=== PATIENT | male | born 1955 | race Hispanic/Latino ===

== ENCOUNTER 2017-04-19 05:33 | Observation (INO) | payer BC ==
[2017-04-19 05:45] VITALS: BMI 29.3
--- NOTE | 2017-04-19 05:53 | ED PDOC ---
HPI: Abdomen Time Seen by Provider: 04/19/17 05:39 Chief Complaint (Nursing): Abdominal Pain Chief Complaint (Provider): abdominal pain History Per: Patient History/Exam Limitations: no limitations Onset/Duration Of Symptoms: Days (2) Outside of [place] travel?: No Current Symptoms Are (Timing): Still Present Location Of Pain/Discomfort: Diffuse Quality Of Discomfort: "Pain" Associated Symptoms: denies: Fever, Chills, Nausea, Vomiting, Diarrhea Additional History Per: Patient Additional Complaint(s): The patient is a 61yo male, past medical history of HIV, not on HAART, CD4 count 900 and viral load 200, presents to the ED for evaluation of right sided abdominal pain since 8pm last night. Patient also reports he has not had a normal bowel movement since 2 days ago; he denies any associated fever, chills, nausea, vomiting and offer no additional medical complaints. Past Medical History Reviewed: Historical Data, Nursing Documentation, Vital Signs Vital Signs: Last Vital Signs Temp 98.1 F 04/19/17 17:29 Pulse 70 04/19/17 17:47 Resp 17 04/19/17 17:47 BP 148/93 H 04/19/17 17:29 Pulse Ox 98 04/19/17 17:29 - Medical History PMH: HIV - Surgical History Surgical History: No Surg Hx - Family History Family History: States: Unknown Family Hx - Home Medications Home Medications: Ambulatory Orders Medication Instructions Recorded Biotin [Obi Biotin] 1 cap PO DAILY 04/19/17 Cholecalciferol (Vitamin D3) 5,000 unit PO DAILY 04/19/17 [Vitamin D3] Docusate Sodium [Dulcolax Stool 100 mg PO DAILY #12 capsule 04/19/17 Softener] Levothyroxine [Synthroid] 25 mcg PO DAILY 04/19/17 [place] Carbonate [Lithobid] 300 mg PO DAILY 04/19/17 Naproxen Sodium [Aleve] 220 mg PO BID PRN 04/19/17 Testosterone Cypionate 2.5 ml IM TH 04/19/17 [Depo-Testosterone Inj] buPROPion XL [Wellbutrin XL] 150 mg PO DAILY 04/19/17 buPROPion XL [Wellbutrin XL] 300 mg PO DAILY 04/19/17 - Allergies Allergies/Adverse Reactions: Allergies Allergy/AdvReac Type Severity Reaction Status Date / Time No Known Allergies Allergy Verified 04/19/17 05:48 Review of Systems ROS Statement: Except As Marked, All Systems Reviewed And Found Negative Constitutional: Negative for: Fever, Chills Gastrointestinal: Positive for: Abdominal Pain. Negative for: Nausea, Vomiting Physical Exam - Reviewed Nursing Documentation Reviewed: Yes Vital Signs Reviewed: Yes - Physical Exam Appears: Positive for: Well, Non-toxic, No Acute Distress Head Exam: Positive for: ATRAUMATIC, NORMAL INSPECTION, NORMOCEPHALIC Skin: Positive for: Normal Color, Warm, DRY Eye Exam: Positive for: Normal appearance Neck: Positive for: Normal, Supple Cardiovascular/Chest: Positive for: Regular Rate, Rhythm Respiratory: Positive for: Normal Breath Sounds. Negative for: Respiratory Distress Gastrointestinal/Abdominal: Positive for: Soft, Tenderness (mild right sided abdominal tenderness). Negative for: Other (McBurney's point tenderness, Roy 's sign) Rectal: Negative for: Other (fecal impaction) Extremity: Positive for: Normal ROM. Negative for: Deformity Neurologic/Psych: Positive for: Alert, Oriented. Negative for: Motor/Sensory Deficits - Laboratory Results Result Diagrams: 04/19/17 06:06 04/19/17 06:06 - ECG O2 Sat by Pulse Oximetry: 100 (RA) Pulse Ox Interpretation: Normal Medical Decision Making Medical Decision Making: Time: 544 Impression: Constipation Plan: -- BMP -- LFT -- CBC -- XR Obstructive Series -- Toradol 15 mg IV Reassess Time: 06 Patient reports symptoms are still present. He has not tried the fleet enema yet. Told patient to try enema and if no relief, will need CT A/P to r/o other causes of abd pain. Time: 07 Patient to be signed out to Dr. Haro pending re-evaluation after enema and final disposition. Scribe Attestation: Documented by Denise Rojo acting as a scribe for Jeison Molina MD. Provider Attestation: All medical record entries made by the Scribe were at my direction and personally dictated by me. I have reviewed the chart and agree that the record accurately reflects my personal performance of the history, physical exam, medical decision making, and the department course for this patient. I have also personally directed, reviewed, and agree with the discharge instructions and disposition. Disposition - Clinical Impression Clinical Impression: Partial small bowel obstruction - Disposition Disposition: Transfer of Care Disposition Time: 07:00 Condition: FAIR Patient Signed Over To: Filiberto Haro Handoff Comments: pending reassessment
[2017-04-19 06:10] LABS: BASO # 0.1 K/uL (0.0-0.2); BASO % 0.7 % (0.0-2.0); EOS # 0.2 K/uL (0.0-0.7); EOS % 1.2 % (0.0-4.0); HEMATOCRIT 54.1 % (35.0-51.0); LYMPH % 14.2 % (20.0-40.0); MEAN CELL VOLUME 87.8 fl (80.0-94.0); MEAN CORPUSCULAR HEMOGLOBIN 28.7 pg (27.0-31.0); MEAN CORPUSCULAR HGB CONC 32.7 g/dL (33.0-37.0); MEAN PLATELET VOLUME 8.7 fl (7.2-11.7); MONO # 1.3 K/uL (0.0-0.8); MONO % 9.1 % (0.0-10.0); NEUT # 10.3 K/uL (1.8-7.0); NEUT % 74.8 % (50.0-75.0); NRBC % 0.2 % (0.0-0.0); RED CELL DISTRIBUTION WIDTH 13.2 % (11.5-14.5); WHITE BLOOD COUNT 13.8 K/uL (4.8-10.8)
[2017-04-19 06:19] LABS: ALB/GLOB RATIO 1.8 (1.0-2.1); ALKALINE PHOSPHATASE 66 U/L (38-126); ALT/SGPT 42 U/L (21-72); AST/SGOT 28 U/L (17-59); BILIRUBIN,TOTAL 1.1 mg/dl (0.2-1.3); BLOOD UREA NITROGEN 21 mg/dl (9-20); CALCIUM 11.3 mg/dL (8.4-10.2); CARBON DIOXIDE 32 mmol/L (22-30); CHLORIDE 96 mmol/L (98-107); GFR AFRICAN-AMERICAN > 60; GLUCOSE,RANDOM 120 mg/dL (75-110); SODIUM 140 mmol/l (132-148); TOTAL PROTEIN 7.9 G/DL (6.3-8.2)
[2017-04-19 06:32] LABS: POTASSIUM 5.2 MMOL/L (3.6-5.0)
--- NOTE | 2017-04-19 07:17 | ED PDOC ---
- Laboratory Results Result Diagrams: 04/19/17 06:06 04/19/17 06:06 - ECG O2 Sat by Pulse Oximetry: 100 (RA) Pulse Ox Interpretation: Normal - Progress ED Course And Treament: 1323: Partial small bowel obstruction. Surgery resident saw pt. and put in NG. They will contact Dr. Marshall for further discussion and treatment plan. Will need admit to service for further eval. 1338: Spoke with Dr. Fraga. Will admit and give further orders when pt. reaches floor. Medical Decision Making Medical Decision Making: Time: 07:00 --Patient endorsed from Dr. Molina to me. --Here for constipation and abdominal pain since last night. --Pending reevaluation for relief after medication given for bowel movement. Time: 07:40 --Patient complaining of some pain after medication given. --Admit to hospital routine: on ED Obs for continuation of abdominal pain. --Abd Pelvis PO & IV Contrast CT ordered for further evaluation. --Iohexol 50 mL PO --Morphine 2 mg IV --Sodium Chloride 500 mls/hr IV Any further documentation will be included within ED Obs section of chart. Scribe Attestation: Documented by Tess Bautista, acting as a scribe for Filiberto Haro MD. Provider Scribe Attestation: All medical record entries made by the Scribe were at my direction and personally dictated by me. I have reviewed the chart and agree that the record accurately reflects my personal performance of the history, physical exam, medical decision making, and the department course for this patient. I have also personally directed, reviewed, and agree with the discharge instructions and disposition. Disposition Counseled Patient/Family Regarding: Studies Performed, Diagnosis - Clinical Impression Clinical Impression: Partial small bowel obstruction - POA Present On Arrival: None - Disposition Disposition: Admitted as In-Patient Disposition Time: 13:29 Condition: FAIR ED OBSERVATION Discharge: Yes Date of observation admission: 04/19/17 Time of observation admission: 07:38 - Observation admission statement Patient is being placed in observation because:: abdominal pain - Goals of Observation Goals of observation are:: PO & IV contrast intake, abdomen CT completion, and resolution of symptoms. - Progress Note Progress Note: 04/19/17 08:06 --Morphine 2 mg IV 04/19/17 08:41 --Abdomen Obstructive Series X-ray FINDINGS: CHEST: Lungs: Clear. Cardiovascular: Normal size heart. No pulmonary vascular congestion. Pleura: No pleural fluid. No pneumothorax. Other findings: None. ABDOMEN AND PELVIS: Bowel: . Moderate stool is in the rectosigmoid colon and hepatic flexure. Mid and mid to distal small bowel loops mild-moderately distended with either fecalization in the more proximal small bowel loops or stool in a redundant rectosigmoid colon are suggested. Free air: None. Bones: Scoliosis left sacroiliac sclerotic arthrosis L4-5 and L5-S1 facet arthrosis Other findings: None. IMPRESSION: Mid to mid-distal small bowel obstruction - at this time incomplete yet likely high-grade partial suggested. No free air. Moderate colonic stool retention. No pulmonary infiltrate 04/19/17 09:10 --Patient resting comfortably, ingesting PO & IV Contrast, and pending CT Completion. 04/19/17 10:40 --Patient resting comfortably, ingesting PO & IV Contrast, and pending CT Completion. 04/19/17 11:46 --Dilaudid 1 mg IVP 04/19/17 12:10 --Pending official reading of abd & pelvis CT
[2017-04-19] MEDS ORDERED: Iohexol 240 (50 ml) PO ONE (07:37)
[2017-04-19] MEDS ORDERED: Sodium Chloride 0.9% 500 ML IV STA (07:37)
[2017-04-19] MEDS ORDERED: Iohexol 240 (50 ml) ONE (07:40)
--- NOTE | 2017-04-19 08:43 | RAD ---
PROCEDURE: Radiographs of the chest and abdomen (obstructive series) HISTORY: no BM in 2 days COMPARISON: No prior. TECHNIQUE: AP radiograph of the chest, with upright and supine radiographs of the abdomen. FINDINGS: CHEST: Lungs: Clear. Cardiovascular: Normal size heart. No pulmonary vascular congestion. Pleura: No pleural fluid. No pneumothorax. Other findings: None. ABDOMEN AND PELVIS: Bowel: . Moderate stool is in the rectosigmoid colon and hepatic flexure. Mid and mid to distal small bowel loops mild-moderately distended with either fecalization in the more proximal small bowel loops or stool in a redundant rectosigmoid colon are suggested. Free air: None. Bones: Scoliosis left sacroiliac sclerotic arthrosis L4-5 and L5-S1 facet arthrosis Other findings: None. IMPRESSION: Mid to mid-distal small bowel obstruction - at this time incomplete yet likely high-grade partial suggested. No free air. Moderate colonic stool retention. No pulmonary infiltrate
[2017-04-19] MEDS ORDERED: Iodixanol 320 MG/ML 100 ML BOTTLE IV ONE (10:56)
[2017-04-19] MEDS ORDERED: Sodium Chloride 0.9% 50 ML IV ONE (10:56)
[2017-04-19] MEDS ORDERED: HYDROmorphone 0.5 mg/0.5 ml ISec IVP STA (11:46)
[2017-04-19] MEDS ORDERED: HYDROmorphone 0.5 mg/0.5 ml ISec ONE (11:49)
--- NOTE | 2017-04-19 13:11 | CT ---
PROCEDURE: CT Abdomen and Pelvis with contrast HISTORY: abd pain COMPARISON: None. TECHNIQUE: Contrast dose: 95 cc of Visipaque administered Radiation dose: Total exam DLP = 992 mGy-cm. This CT exam was performed using one or more of the following dose reduction techniques: Automated exposure control, adjustment of the mA and/or kV according to patient size, and/or use of iterative reconstruction technique. FINDINGS: LOWER THORAX: Unremarkable. LIVER: Mild hepatic diffuse steatosis suggested No gross lesion or ductal dilatation. GALLBLADDER AND BILE DUCTS: Unremarkable. PANCREAS: Unremarkable. No gross lesion or ductal dilatation. SPLEEN: Unremarkable. ADRENALS: Unremarkable. No mass. KIDNEYS AND URETERS: Unremarkable. No hydronephrosis. No solid mass. Symmetrical renal function. VASCULATURE: Unremarkable. No aortic aneurysm. BOWEL: The stomach is distended with trace oral contrast within it.There are multiple proximal mid and some distal small bowel dilated loops present. A discrete transitional point is not identified. Some small bowel fecalization is suggested distally. Along the right lower dilated small bowel loops there is contiguous ascites. No significant appearing mesenteric edema is noted. No discrete obstructing mass is identified. Moderate stool in the colon is present. The right colon is not collapsed. . Large bowel is not distended either. APPENDIX: Normal appendix. PERITONEUM: There is some free fluid along the anterior distal dilated small bowel loops in the right lower quadrant. No free air. LYMPH NODES: Unremarkable. No enlarged lymph nodes. BLADDER: Unremarkable. REPRODUCTIVE: Unremarkable. BONES: No acute fracture. OTHER FINDINGS: None. IMPRESSION: High-grade partial distal small bowel obstruction suggested. Anterior free fluid borders the right lower quadrant dilated distal small bowel loops. No free air seen. No obstructing mass seen. A discrete transitional point is not identified.
--- NOTE | 2017-04-19 13:45 | CP.PCM.CON ---
History of Present Illness - History of Present Illness History of Present Illness: Surgery: Dr. Marshall CC: Abd pain HPI: 61M w. pmh of HIV, not on HAART, depression, and hypothyroid presents w. acute onset abd pain. Pain began last night around 8PM. Pain is constant, sharp , and waxes and wanes in severity. Pain is in R mid abd. Pt has never had this pain before. Pt denies N/V. Last flatus was at 2 AM. Pt did have BM this morning following enema, but prior to this, last BM was on Monday. Pt states this is not typical of him. He denies F/C, no CROWDER/blurred vision, no CP/ palpitations, no SOB/cough, no hematuria/dysuria. CT done in ED consistent w. high grade SBO. PMH: See above PSH: Jaw surgery Meds: MAR reviewed NKDA Social: No ETOH/tobacco/drugs Fhx: non-contributory Review of Systems - Review of Systems All systems: reviewed and no additional remarkable complaints except (HPI) Past Patient History - Past Social History Smoking Status: Never Smoked - HEMATOLOGICAL/ONCOLOGICAL Hx Human Immunodeficiency Virus (HIV): Yes - PSYCHIATRIC Hx Substance Use: No - SURGICAL HISTORY Hx Surgeries: No - ANESTHESIA Hx Anesthesia: No Meds Home Medications: Home Medication List Medication Instructions Recorded Confirmed Type Docusate Sodium [Dulcolax Stool 100 mg PO DAILY #12 capsule 04/19/17 Rx Softener] Allergies/Adverse Reactions: Allergies Allergy/AdvReac Type Severity Reaction Status Date / Time No Known Allergies Allergy Verified 04/19/17 05:48 Physical Exam - Constitutional Appears: Non-toxic, No Acute Distress - Head Exam Head Exam: ATRAUMATIC, NORMOCEPHALIC - Eye Exam Eye Exam: EOMI. absent: Scleral icterus Pupil Exam: PERRL - ENT Exam ENT Exam: Mucous Membranes Moist, Normal External Ear Exam - Neck Exam Neck exam: Positive for: Full Rom - Respiratory Exam Respiratory Exam: NORMAL BREATHING PATTERN. absent: Accessory Muscle Use, Respiratory Distress - GI/Abdominal Exam GI & Abdominal Exam: Distended (mild), Soft, Tenderness (diffuse, more prominent R mid abd). absent: Firm, Guarding, Rebound, Rigid - Extremities Exam Extremities exam: Negative for: calf tenderness, pedal edema - Neurological Exam Neurological exam: Alert, Oriented x3 - Psychiatric Exam Psychiatric exam: Normal Affect, Normal Mood - Skin Skin Exam: Dry, Normal Color, Warm Results - Vital Signs Recent Vital Signs: Last Vital Signs Temp 99.1 F 04/19/17 05:41 Pulse 65 04/19/17 07:37 Resp 18 04/19/17 05:41 BP 124/85 04/19/17 07:37 Pulse Ox 100 04/19/17 13:29 - Labs Result Diagrams: 04/19/17 06:06 04/19/17 06:06 - Imaging and Cardiology CT scan - abdomen Status: Image reviewed by me, Report reviewed by me Assessment & Plan - Assessment and Plan (Free Text) Assessment: 61M w. SBO -NPO -NGT to continuous suction -IVF -dilaudid -zofran -serial abd exams -will d/w attending Fahad PGY3
[2017-04-19] MEDS ORDERED: Sodium Chloride 0.9% 1,000 ML IV SCH (14:00)
[2017-04-19] MEDS: Sodium Chloride 0.9% 1,000 ML IV SCH ×2 (16:35→22:45)
--- NOTE | 2017-04-19 17:14 | RAD ---
HISTORY: NGT placement. COMPARISON: Comparison made with prior CT scan abdomen pelvis 04/19/2017 at 1059 hours FINDINGS: In situ NGT the tip of which lies just at or above the level of the EG junction and should be advanced. BOWEL: Stomach appears to be distended with air and contrast. Oral contrast material also appears to opacify the distended loops of small bowel seen to much better advantage on prior CT scan BONES: Mild multilevel degenerative spondylosis of the lower thoracic and lumbar spine. OTHER FINDINGS: Excreted contrast material seen within in incompletely distended urinary bladder. IMPRESSION: NGT tip lies at or just lr above the EG junction and must be advanced. . . Findings discussed with [facility] Nurse Jimenez at approximately 5:10 p.m with written down and read back verification.
--- NOTE | 2017-04-19 19:48 | CP.PCM.HP ---
Past Patient History - Past Social History Smoking Status: Never Smoked - CARDIAC Hx Cardiac Disorders: No - PULMONARY Hx Respiratory Disorders: No - NEUROLOGICAL Hx Neurological Disorder: No - HEENT Hx HEENT Problems: No - RENAL Hx Chronic Kidney Disease: No - ENDOCRINE/METABOLIC Hx Endocrine Disorders: No - HEMATOLOGICAL/ONCOLOGICAL Hx Blood Disorders: Yes Hx Human Immunodeficiency Virus (HIV): Yes - INTEGUMENTARY Hx Dermatological Problems: No - MUSCULOSKELETAL/RHEUMATOLOGICAL Hx Musculoskeletal Disorders: No Hx Falls: No - GENITOURINARY/GYNECOLOGICAL Hx Genitourinary Disorders: No - PSYCHIATRIC Hx Psychophysiologic Disorder: Yes Hx Depression: Yes - SURGICAL HISTORY Hx Surgeries: No - ANESTHESIA Hx Anesthesia: No Meds Home Medications: Home Medication List Medication Instructions Recorded Confirmed Type Docusate Sodium [Dulcolax Stool 100 mg PO DAILY #12 capsule 04/19/17 Rx Softener] Allergies/Adverse Reactions: Allergies Allergy/AdvReac Type Severity Reaction Status Date / Time No Known Allergies Allergy Verified 04/19/17 05:48 Results - Vital Signs Recent Vital Signs: Last Vital Signs Temp 98.1 F 04/19/17 17:29 Pulse 70 04/19/17 17:47 Resp 17 04/19/17 17:47 BP 148/93 H 04/19/17 17:29 Pulse Ox 98 04/19/17 17:29 - Labs Result Diagrams: 04/19/17 06:06 04/19/17 06:06
[2017-04-20] MEDS: Sodium Chloride 0.9% 1,000 ML IV SCH ×3 (02:40→11:40)
[2017-04-20] MEDS ORDERED: Chlorhexidine Gluconate 1 APPL/PKT TP ONE (06:01)
[2017-04-20 07:49] LABS: BASO % 0.5 % (0.0-2.0); EOS # 0.1 K/uL (0.0-0.7); EOS % 1.4 % (0.0-4.0); HEMATOCRIT 44.7 % (35.0-51.0); LYMPH # 1.9 K/uL (1.0-4.3); LYMPH % 18.4 % (20.0-40.0); MEAN CELL VOLUME 87.8 fl (80.0-94.0); MEAN CORPUSCULAR HEMOGLOBIN 28.8 pg (27.0-31.0); MEAN CORPUSCULAR HGB CONC 32.8 g/dL (33.0-37.0); MEAN PLATELET VOLUME 8.8 fl (7.2-11.7); MONO % 10.2 % (0.0-10.0); NEUT # 7.2 K/uL (1.8-7.0); NEUT % 69.5 % (50.0-75.0); NRBC % 0.1 % (0.0-0.0); RED CELL DISTRIBUTION WIDTH 12.8 % (11.5-14.5); WHITE BLOOD COUNT 10.3 K/uL (4.8-10.8)
[2017-04-20 07:58] LABS: ALB/GLOB RATIO 1.7 (1.0-2.1); ALKALINE PHOSPHATASE 52 U/L (38-126); ALT/SGPT 36 U/L (21-72); AST/SGOT 19 U/L (17-59); BILIRUBIN,TOTAL 1.5 mg/dl (0.2-1.3); BLOOD UREA NITROGEN 14 mg/dl (9-20); CALCIUM 8.6 mg/dL (8.4-10.2); CARBON DIOXIDE 25 mmol/L (22-30); CHLORIDE 106 mmol/L (98-107); GFR AFRICAN-AMERICAN > 60; GLUCOSE,RANDOM 97 mg/dL (75-110); POTASSIUM 3.8 MMOL/L (3.6-5.0); SODIUM 138 mmol/l (132-148); TOTAL PROTEIN 5.7 G/DL (6.3-8.2)
[2017-04-20 08:14] VITALS: RESP 20
[2017-04-20] MEDS: Levothyroxine 25 MCG TAB PO SCH ×2 (08:39→10:43)
--- NOTE | 2017-04-20 09:43 | RAD ---
HISTORY: eval ngt repositioning COMPARISON: Plain radiographs and CT abdomen and pelvis performed the same day FINDINGS: BOWEL: The nasogastric tube is coiled in the stomach. There is contrast material in the bowel loops from prior oral ingestion. There is persistent mild dilatation of the proximal small bowel loops. BONES: Normal. OTHER FINDINGS: Contrast material is seen in the urinary bladder from prior intravenous injection. IMPRESSION: Nasogastric tube is coiled in the stomach. Persistent mild dilatation of the proximal small bowel loops.
--- NOTE | 2017-04-20 11:26 | CP.PCM.PN ---
Subjective - Date & Time of Evaluation Date of Evaluation: 04/20/17 Time of Evaluation: 11:23 - Subjective Subjective: Surgery: Dr. Marshall Pt seen and examined. NGT fell out overnight. Pt states that he feels much better this morning. Pain resolved. No N/V. Passing flatus. Had normal BM. Was given CLD and tolerated. Objective - Vital Signs/Intake and Output Vital Signs (last 24 hours): Temp Pulse Resp BP Pulse Ox 98.4 F 64 20 133/80 99 04/20/17 08:13 04/20/17 08:13 04/20/17 08:13 04/20/17 08:13 04/20/17 08:13 Intake and Output: 04/20/17 04/20/17 06:59 18:59 Intake Total 1200 Output Total 100 Balance 1100 - Medications Medications: Current Medications Famotidine (Pepcid) 20 mg IVP Q12 [facility] Last Admin: 04/20/17 08:39 Dose: 20 mg Heparin Sodium (Porcine) (Heparin) 5,000 units SC Q12 [facility] PRN Reason: Protocol Last Admin: 04/20/17 08:40 Dose: 5,000 units Home Med (Bupropion Xl [Wellbutrin Xl]) 300 mg PO DAILY [facility] Home Med (Bupropion Xl [Wellbutrin Xl]) 150 mg PO DAILY [facility] Hydromorphone HCl (Dilaudid) 0.5 mg IVP Q4 PRN PRN Reason: Pain, moderate (4-7) Sodium Chloride (Sodium Chloride 0.9%) 1,000 mls @ 125 mls/hr IV .Q8H [facility] Stop: 04/20/17 13:57 Last Admin: 04/20/17 07:23 Dose: Not Given Levothyroxine Sodium (Synthroid) 25 mcg PO DAILY [facility] Last Admin: 04/20/17 10:43 Dose: 25 mcg [place] Carbonate ([place] Carbonate 300mg) 300 mg PO DAILY [facility] Last Admin: 04/20/17 10:43 Dose: 300 mg Ondansetron HCl (Zofran Inj) 4 mg IVP Q4 PRN PRN Reason: Nausea/Vomiting - Labs Labs: 04/20/17 07:00 04/20/17 07:00 - Constitutional Appears: Non-toxic, No Acute Distress - Head Exam Head Exam: ATRAUMATIC, NORMOCEPHALIC - Eye Exam Eye Exam: EOMI. absent: Scleral icterus - ENT Exam ENT Exam: Mucous Membranes Moist - Neck Exam Neck Exam: Full ROM - Respiratory Exam Respiratory Exam: NORMAL BREATHING PATTERN. absent: Accessory Muscle Use, Respiratory Distress - Cardiovascular Exam Cardiovascular Exam: REGULAR RHYTHM - GI/Abdominal Exam GI & Abdominal Exam: Soft. absent: Distended, Firm, Guarding, Rigid, Tenderness , Rebound - Extremities Exam Extremities Exam: absent: Calf Tenderness, Pedal Edema - Neurological Exam Neurological Exam: Alert, Awake, Oriented x3 - Psychiatric Exam Psychiatric exam: Normal Affect, Normal Mood - Skin Skin Exam: Dry, Normal Color, Warm Assessment and Plan - Assessment and Plan (Free Text) Assessment: 61M w. SBO, improved -Diet advanced to regular -If diet tolerated, pt clear for D/C from surgical standpoint -will d/w attending Zemaitis PGY3
[2017-04-20 14:35] LABS: RBC URINE 1 /hpf (0-3); URINE BILIRUBIN NEGATIVE (NEGATIVE); URINE BLOOD NEGATIVE (NEGATIVE); URINE COLOR STRAW (YELLOW); URINE GLUCOSE (UA) NEG (Normal); URINE KETONE NEGATIVE (NEGATIVE); URINE LEUKOCYTE ESTERASE NEG Leu/uL (Negative); URINE PROTEIN NEGATIVE (NEGATIVE); URINE UROBILINOGEN 0.2-1.0 mg/dL (0.2-1.0); WBC URINE < 1 /hpf (0-5)
[2017-04-20 16:17] VITALS: BP 108/57; PULSE 60; TEMP 98.2; O2SAT 98
--- NOTE | 2017-04-20 23:45 | CP.PCM.DIS ---
Provider - Provider Date of Admission: 04/19/17 07:38 Attending physician: Chanell Fraga MD Time Spent in preparation of Discharge (in minutes): 30 Hospital Course - Lab Results Lab Results: Most Recent Lab Values WBC 10.3 K/uL (4.8-10.8) 04/20/17 07:00 RBC 5.09 Mil/uL (4.40-5.90) 04/20/17 07:00 Hgb 14.7 g/dL (12.0-18.0) D 04/20/17 07:00 Hct 44.7 % (35.0-51.0) 04/20/17 07:00 MCV 87.8 fl (80.0-94.0) 04/20/17 07:00 MCH 28.8 pg (27.0-31.0) 04/20/17 07:00 MCHC 32.8 g/dL (33.0-37.0) L 04/20/17 07:00 RDW 12.8 % (11.5-14.5) 04/20/17 07:00 Plt Count 150 K/uL (130-400) 04/20/17 07:00 MPV 8.8 fl (7.2-11.7) 04/20/17 07:00 Neut % (Auto) 69.5 % (50.0-75.0) 04/20/17 07:00 Lymph % (Auto) 18.4 % (20.0-40.0) L 04/20/17 07:00 [place] % (Auto) 10.2 % (0.0-10.0) H 04/20/17 07:00 Eos % (Auto) 1.4 % (0.0-4.0) 04/20/17 07:00 Baso % (Auto) 0.5 % (0.0-2.0) 04/20/17 07:00 Neut # 7.2 K/uL (1.8-7.0) H 04/20/17 07:00 Lymph # 1.9 K/uL (1.0-4.3) 04/20/17 07:00 [place] # 1.0 K/uL (0.0-0.8) H 04/20/17 07:00 Eos # 0.1 K/uL (0.0-0.7) 04/20/17 07:00 Baso # 0.0 K/uL (0.0-0.2) 04/20/17 07:00 Sodium 138 mmol/l (132-148) 04/20/17 07:00 Potassium 3.8 MMOL/L (3.6-5.0) 04/20/17 07:00 Chloride 106 mmol/L (98-107) 04/20/17 07:00 Carbon Dioxide 25 mmol/L (22-30) 04/20/17 07:00 Anion Gap 11 (10-20) 04/20/17 07:00 BUN 14 mg/dl (9-20) 04/20/17 07:00 Creatinine 1.1 mg/dL (0.8-1.5) 04/20/17 07:00 Est GFR ( Amer) > 60 04/20/17 07:00 Est GFR (Non-Af Amer) > 60 04/20/17 07:00 Random Glucose 97 mg/dL (75-110) 04/20/17 07:00 Calcium 8.6 mg/dL (8.4-10.2) 04/20/17 07:00 Total Bilirubin 1.5 mg/dl (0.2-1.3) H 04/20/17 07:00 Direct Bilirubin 0.3 mg/ml (0.0-0.4) 04/19/17 06:06 AST 19 U/L (17-59) 04/20/17 07:00 ALT 36 U/L (21-72) 04/20/17 07:00 Alkaline Phosphatase 52 U/L (38-126) 04/20/17 07:00 Total Protein 5.7 G/DL (6.3-8.2) L 04/20/17 07:00 Albumin 3.6 g/dL (3.5-5.0) 04/20/17 07:00 Globulin 2.1 gm/dL (2.2-3.9) L 04/20/17 07:00 Albumin/Globulin Ratio 1.7 (1.0-2.1) 04/20/17 07:00 Urine Color Straw (YELLOW) 04/20/17 14:20 Urine Clarity Clear (Clear) 04/20/17 14:20 Urine pH 6.0 (5.0-8.0) 04/20/17 14:20 Ur Specific [place] 1.009 (1.003-1.030) 04/20/17 14:20 Urine Protein Negative mg/dL (NEGATIVE) 04/20/17 14:20 Urine Glucose (UA) Neg mg/dL (Normal) 04/20/17 14:20 Urine Ketones Negative mg/dL (NEGATIVE) 04/20/17 14:20 Urine Blood Negative (NEGATIVE) 04/20/17 14:20 Urine Nitrate Negative (NEGATIVE) 04/20/17 14:20 Urine Bilirubin Negative (NEGATIVE) 04/20/17 14:20 Urine Urobilinogen 0.2-1.0 mg/dL (0.2-1.0) 04/20/17 14:20 Ur Leukocyte Esterase Neg [place] L/uL (Negative) 04/20/17 14:20 Urine RBC (Auto) 1 /hpf (0-3) 04/20/17 14:20 Urine Microscopic WBC < 1 /hpf (0-5) 04/20/17 14:20 Discharge Exam - Head Exam Head Exam: ATRAUMATIC, NORMOCEPHALIC Discharge Plan - Discharge Medications Prescriptions: Docusate Sodium [Dulcolax Stool Softener] 100 mg PO DAILY #12 capsule - Follow Up Plan Condition: FAIR Disposition: HOME/ ROUTINE Instructions: How To Wash Your Hands (GEN), Bowel Obstruction (GEN) Referrals: Seven Marshall MD [Staff Provider] - Chanell Fraga MD [Staff Provider] -
== END 2017-04-20 16:22 | disposition home or self-care (01) ==
LOC: H.ER 05:33 → H.EROBSV 07:38 → OBSVTOIN 15:22 → H.ERHOLD 15:22 → INTOOBSV 15:22 → H.MEDSURG1 17:13
PROVIDERS: ADMIT Internal Medicine; ATTEND Internal Medicine
DX: K56.60 Unspecified intestinal obstruction (principal); Z21 Asymptomatic human immunodeficiency virus [HIV] infection status; F32.9 Major depressive disorder, single episode, unspecified; E03.9 Hypothyroidism, unspecified
CPT/HCPCS: 36415; 74000; 74022; 74177; 80048; 80053; 80076; 81003; 85025; 87086; 96361; 96374; 96375; 96376; 99284; G0378; J1170; J1644; J1885; J2060; J2270; J7040; Q9966; Q9967

== ENCOUNTER 2018-11-09 05:26 | Inpatient (IN) | payer BC ==
[2018-11-09 05:26] VITALS: BMI 29.3
[2018-11-09] MEDS ORDERED: Morphine 4 MG/ML VIAL IVP STA (05:56)
[2018-11-09] MEDS ORDERED: Sodium Chloride 0.9% 1,000 ML IV STA (05:57)
--- NOTE | 2018-11-09 06:09 | ED PDOC ---
HPI: Abdomen Time Seen by Provider: 11/09/18 05:32 Chief Complaint (Nursing): Abdominal Pain Chief Complaint (Provider): Abdominal Pain History Per: Patient History/Exam Limitations: no limitations Onset/Duration Of Symptoms: Days (x2) Current Symptoms Are (Timing): Still Present Additional Complaint(s): 63 year old male presents to the ED complaining of constant abdominal pain that started yesterday. Patient reports pain in the epigastric area around the umbilicus. He states pain is not improving and he has not taken any medications for pain. He reports nausea and constipation. Patient states he has not had a bowel movement for 2 days. Patient did, however, administer himself Enema that provided some relief. Denies fever or bloody stools. Patient reports a history of small bowel obstruction a few years ago with similar presentation. PMD: in [place] Past Medical History Reviewed: Historical Data, Nursing Documentation, Vital Signs Vital Signs: Last Vital Signs Temp 97.9 F 11/09/18 05:35 Pulse 59 L 11/09/18 05:35 Resp 17 11/09/18 05:35 BP 139/99 H 11/09/18 05:35 Pulse Ox 100 11/09/18 05:35 - Medical History PMH: Depression, HIV, Hypothyroidism Denies: Chronic Kidney Disease - Surgical History Surgical History: No Surg Hx - Family History Family History: States: Unknown Family Hx - Home Medications Home Medications: Ambulatory Orders Medication Instructions Recorded Biotin [Obi Biotin] 1 cap PO DAILY 04/19/17 Cholecalciferol [Vitamin D 1000 IU] 1 tab PO DAILY 11/09/18 Fluoxetine HCl [Prozac] 40 mg PO DAILY 11/09/18 Ibuprofen [Advil] 400 mg PO Q12 11/09/18 Levothyroxine [Synthroid] 50 mcg PO DAILY 11/09/18 Omeprazole Magnesium [Prilosec Otc] 20 mg PO DAILY 11/09/18 Testosterone Cypionate [Testone 0.7 ml IM Q14D 11/09/18 Cik] buPROPion XL [Wellbutrin XL] 150 mg PO DAILY 11/09/18 buPROPion XL [Wellbutrin XL] 300 mg PO DAILY 11/09/18 traZODone [Desyrel] 25 mg PO HS 11/09/18 - Allergies Allergies/Adverse Reactions: Allergies Allergy/AdvReac Type Severity Reaction Status Date / Time No Known Allergies Allergy Verified 11/09/18 05:45 Review of Systems ROS Statement: Except As Marked, All Systems Reviewed And Found Negative Constitutional: Negative for: Fever Gastrointestinal: Positive for: Nausea, Abdominal Pain, Constipation. Negative for: Hematochezia Physical Exam - Reviewed Nursing Documentation Reviewed: Yes Vital Signs Reviewed: Yes - Physical Exam Appears: Positive for: No Acute Distress. Negative for: Uncomfortable Head Exam: Positive for: ATRAUMATIC, NORMAL INSPECTION, NORMOCEPHALIC Skin: Positive for: Normal Color, Warm, Dry Eye Exam: Positive for: Normal appearance ENT: Positive for: Normal ENT Inspection Neck: Positive for: Normal, Painless ROM Cardiovascular/Chest: Positive for: Regular Rate, Rhythm Respiratory: Positive for: Normal Breath Sounds. Negative for: Wheezing, Respiratory Distress Gastrointestinal/Abdominal: Positive for: Tenderness (epigastric area around the umbilicus; no lower abdominal tenderness) Extremity: Positive for: Normal ROM Neurological/Psych: Positive for: Alert, Oriented - Laboratory Results Result Diagrams: 11/09/18 06:10 11/09/18 06:10 - ECG O2 Sat by Pulse Oximetry: 100 (RA) Pulse Ox Interpretation: Normal Medical Decision Making Medical Decision Making: Initial Impression: Abdominal Pain Differential includes but not limited to small bowel obstruction, acute pancreatitis, acute appendicitis; less likely acute cholecystitis. Initial Plan: --CT abd/pelvis --ECG --CMP --Lipase stat --ED urine dipstick --CBC --Morphine 4mg IV --Sodium chloride 1000mL IV --Zofran 4mg IV 07:00 Patient signed out to Dr. Haro. Pending labs and CT. Scribe Attestation: Documented by Thuan Rivers acting as a scribe for Travis Kamara MD. Provider Scribe Attestation: All medical record entries made by the Scribe were at my direction and personally dictated by me. I have reviewed the chart and agree that the record accurately reflects my personal performance of the history, physical exam, medical decision making, and the department course for this patient. I have also personally directed, reviewed, and agree with the discharge instructions and disposition. Disposition - Clinical Impression Clinical Impression: Bowel obstruction, Abdominal pain - Patient ED Disposition Is Patient to be Admitted: Transfer of Care - Disposition Disposition: Transfer of Care Disposition Time: 07:00 Condition: STABLE Patient Signed Over To: Filiberto Haro
[2018-11-09] MEDS ORDERED: Morphine 4 MG/ML VIAL ONE (06:12)
[2018-11-09 07:16] LABS: BASO % 0.4 % (0.0-2.0); EOS # 0.1 K/uL (0.0-0.7); EOS % 1.1 % (0.0-4.0); HEMOGLOBIN 17.2 g/dL (12.0-18.0); LYMPH # 1.8 K/uL (1.0-4.3); LYMPH % 18.6 % (20.0-40.0); MEAN CELL VOLUME 86.3 fl (80.0-94.0); MEAN CORPUSCULAR HEMOGLOBIN 28.4 pg (27.0-31.0); MEAN CORPUSCULAR HGB CONC 32.9 g/dL (33.0-37.0); MONO # 0.7 K/uL (0.0-0.8); MONO % 6.9 % (0.0-10.0); NRBC % 0.1 % (0.0-0.0); RBC 6.06 Mil/uL (4.40-5.90); RED CELL DISTRIBUTION WIDTH 12.5 % (11.5-14.5); WHITE BLOOD COUNT 9.5 K/uL (4.8-10.8)
--- NOTE | 2018-11-09 07:16 | ED PDOC ---
- Laboratory Results Result Diagrams: 11/09/18 06:10 11/09/18 06:10 Lab Results: no acute Interpretation Of Abn Labs: no acute - ECG ECG: Positive for: Interpreted By Me, Viewed By Me ECG Rhythm: Positive for: Sinus Rhythm O2 Sat by Pulse Oximetry: 100 (RA) Pulse Ox Interpretation: Normal - Progress ED Course And Treament: 1009: Pt. stable. Surgery saw pt. Will consult for obstruction. Pain controlled currently. AAOx3. Spoke with Dr. Fraga who will admit. Medical Decision Making Medical Decision Making: Time: 0700 -- Patient endorsed to me by Dr. Kamara, pending labs, CT, re-evaluation and final ER disposition. Scribe Attestation: Documented by Tam Bernardo, acting as a scribe forFiliberto Haro MD. Provider Scribe Attestation: All medical record entries made by the Scribe were at my direction and personally dictated by me. I have reviewed the chart and agree that the record accurately reflects my personal performance of the history, physical exam, medical decision making, and the department course for this patient. I have also personally directed, reviewed, and agree with the discharge instructions and disposition. Disposition Counseled Patient/Family Regarding: Studies Performed, Diagnosis - Clinical Impression Clinical Impression: Bowel obstruction - POA Present On Arrival: None - Disposition Disposition: Admitted as In-Patient Disposition Time: 09:00 Condition: FAIR
[2018-11-09 07:26] LABS: ALB/GLOB RATIO 1.7 (1.0-2.1); ALBUMIN 4.9 g/dL (3.5-5.0); ALT/SGPT 48 U/L (21-72); AST/SGOT 36 U/L (17-59); BLOOD UREA NITROGEN 21 mg/dl (9-20); CALCIUM 10.3 mg/dL (8.4-10.2); GFR NON-AFRICAN AMERICAN 51; LIPASE 71 U/L (23-300)
[2018-11-09] MEDS ORDERED: Iohexol 300 100 ML IJ ONE (07:37)
[2018-11-09] MEDS ORDERED: Sodium Chloride 0.9% 50 ML IV ONE (07:38)
--- NOTE | 2018-11-09 09:54 | CP.PCM.CON ---
<Willie Malik - Last Filed: 11/09/18 10:49> History of Present Illness - History of Present Illness History of Present Illness: General Surgery Consult Note for Dr. Kim Reason for consult: SBO 63 M with PMH that includes HIV+ and previous SBO who presents for abdominal pain and constipation. Patient was seen and evaluated in ED. Patient states that he has no had BM or passed flatus for at least 2 days. His abdominal pain began 1 day ago. Patient decided to try mineral enema and fleet enema but only had small BM. Patient had a SBO in 03/2018 that resolved with non-operative managemen t. Patient states he had a colonoscopy in the past that was normal but is due again. Patient rates pain as moderate. He describes pain as constant and dull, aching located diffusely throughout abdomen. Eating/drinking aggravates his symptoms while morphine alleviates them. Denies fever/chills, cp, SOB, diarrhea, incontinence, or urinary symptoms. PMH: HIV+ (non-progressor, CD4+ 810), previous SBO PSH: denies ALL: NKDA Review of Systems - Review of Systems All systems: reviewed and no additional remarkable complaints except Past Patient History - Past Social History Smoking Status: Never Smoked - CARDIAC Hx Cardiac Disorders: No - PULMONARY Hx Respiratory Disorders: No - NEUROLOGICAL Hx Neurological Disorder: No - HEENT Hx HEENT Problems: No - RENAL Hx Chronic Kidney Disease: No - ENDOCRINE/METABOLIC Hx Hypothyroidism: Yes - HEMATOLOGICAL/ONCOLOGICAL Hx Human Immunodeficiency Virus (HIV): Yes - INTEGUMENTARY Hx Dermatological Problems: No - MUSCULOSKELETAL/RHEUMATOLOGICAL Hx Musculoskeletal Disorders: No Hx Falls: No - GASTROINTESTINAL Hx Gastrointestinal Disorders: No - GENITOURINARY/GYNECOLOGICAL Hx Genitourinary Disorders: No - PSYCHIATRIC Hx Depression: Yes - SURGICAL HISTORY Hx Surgeries: Yes Hx Musculoskeletal Surgery: Yes (Maxilla) - ANESTHESIA Hx Anesthesia: Yes Meds Allergies/Adverse Reactions: Allergies Allergy/AdvReac Type Severity Reaction Status Date / Time No Known Allergies Allergy Verified 11/09/18 05:45 Physical Exam - Constitutional Appears: Non-toxic, No Acute Distress - Head Exam Head Exam: ATRAUMATIC, NORMOCEPHALIC - Eye Exam Eye Exam: EOMI, Normal appearance Pupil Exam: PERRL - ENT Exam ENT Exam: Mucous Membranes Moist - Neck Exam Neck exam: Positive for: Full Rom - Respiratory Exam Respiratory Exam: NORMAL BREATHING PATTERN - Cardiovascular Exam Cardiovascular Exam: REGULAR RHYTHM - GI/Abdominal Exam GI & Abdominal Exam: Distended (mild), Hypoactive Bowel Sounds, Soft, Tenderness (diffuse). absent: Firm, Guarding, Hernia, Rebound, Rigid - Rectal Exam Rectal Exam: NORMAL INSPECTION Additional comments: smooth lopez, no impacted stool/fissure/hemorrhoids noted, no blood present, normal sphincter tone - Extremities Exam Extremities exam: Positive for: normal capillary refill, pedal pulses present. Negative for: calf tenderness - Back Exam Back exam: absent: CVA tenderness (L), CVA tenderness (R) - Neurological Exam Neurological exam: Alert, CN II-XII Intact, Oriented x3 - Psychiatric Exam Psychiatric exam: Normal Affect, Normal Mood - Skin Skin Exam: Dry, Intact, Normal Color, Warm Results - Vital Signs Recent Vital Signs: Last Vital Signs Temp 97.9 F 11/09/18 05:35 Pulse 59 L 11/09/18 05:35 Resp 17 11/09/18 05:35 BP 139/99 H 11/09/18 05:35 Pulse Ox 100 11/09/18 09:17 - Labs Result Diagrams: 11/09/18 06:10 11/09/18 06:10 Labs: Laboratory Results - last 24 hr 11/09/18 11/09/18 06:10 06:10 WBC 9.5 RBC 6.06 H Hgb 17.2 D Hct 52.3 H MCV 86.3 MCH 28.4 MCHC 32.9 L RDW 12.5 Plt Count 216 MPV 9.0 Neut % (Auto) 73.0 Lymph % (Auto) 18.6 L [place] % (Auto) 6.9 Eos % (Auto) 1.1 Baso % (Auto) 0.4 Neut # (Auto) 7.0 Lymph # (Auto) 1.8 [place] # (Auto) 0.7 Eos # (Auto) 0.1 Baso # (Auto) 0.0 Sodium 137 Potassium 4.5 Chloride 97 L Carbon Dioxide 32 H Anion Gap 13 BUN 21 H Creatinine 1.4 Est GFR ( Amer) > 60 Est GFR (Non-Af Amer) 51 Random Glucose 106 Calcium 10.3 H Total Bilirubin 0.4 AST 36 ALT 48 Alkaline Phosphatase 75 Total Protein 7.7 Albumin 4.9 Globulin 2.8 Albumin/Globulin Ratio 1.7 Lipase 71 Assessment & Plan - Assessment and Plan (Free Text) Assessment: 63 M who presents for SBO Plan: -NPO -Hold off on NGT for now, will insert if nausea/vomiting develops -Analgesics/Anti-emetics PRN -Serial abd exams -Monitor for bowel function -repeat CT abd/pelvis with PO contrast today -Discussed with Dr. Greene and Dr. Julio Malik PGY2 - Date & Time Date: 11/09/18 Time: 11:02 <Anderson Greene - Last Filed: 11/09/18 12:58> Meds - Medications Medications: Current Medications Lactated Ringer's (Lactated Ringer's) 1,000 mls @ 125 mls/hr IV .Q8H PAMELA Last Admin: 11/09/18 10:16 Dose: 125 mls/hr Morphine Sulfate (Morphine) 2 mg IVP Q4 PRN PRN Reason: Pain, moderate (4-7) Ondansetron HCl (Zofran Inj) 4 mg IVP Q6 PRN PRN Reason: Nausea/Vomiting Results - Vital Signs Recent Vital Signs: Last Vital Signs Temp 98.1 F 11/09/18 12:00 Pulse 54 L 11/09/18 12:00 Resp 18 11/09/18 12:00 BP 118/65 11/09/18 12:00 Pulse Ox 97 11/09/18 12:00 - Labs Result Diagrams: 11/09/18 06:10 11/09/18 06:10 Labs: Laboratory Results - last 24 hr 11/09/18 11/09/18 06:10 06:10 WBC 9.5 RBC 6.06 H Hgb 17.2 D Hct 52.3 H MCV 86.3 MCH 28.4 MCHC 32.9 L RDW 12.5 Plt Count 216 MPV 9.0 Neut % (Auto) 73.0 Lymph % (Auto) 18.6 L [place] % (Auto) 6.9 Eos % (Auto) 1.1 Baso % (Auto) 0.4 Neut # (Auto) 7.0 Lymph # (Auto) 1.8 [place] # (Auto) 0.7 Eos # (Auto) 0.1 Baso # (Auto) 0.0 Sodium 137 Potassium 4.5 Chloride 97 L Carbon Dioxide 32 H Anion Gap 13 BUN 21 H Creatinine 1.4 Est GFR ( Amer) > 60 Est GFR (Non-Af Amer) 51 Random Glucose 106 Calcium 10.3 H Total Bilirubin 0.4 AST 36 ALT 48 Alkaline Phosphatase 75 Total Protein 7.7 Albumin 4.9 Globulin 2.8 Albumin/Globulin Ratio 1.7 Lipase 71 Assessment & Plan - Assessment and Plan (Free Text) Plan: 63yo M with abdominal pain x 1 day, localized to mid abdomen, non-radiating, 9/10 in nature. Pt reports nausea and vomiting. Pt reports taking a few enemas had a BM but no relieve of abdominal pain. Pt had a similar episode a couple of years ago with similar presentation and treated conservatively. Previous colonoscopy about 4 yrs about possible polypectomy. PMHx: depression, hypothyroid, HIV PSHx: denies gen: awake, alert, NAD HEENT: NC/AT, EOMI, PERRLA, no scleral icterus Resp: no acute respiratory distress card: S1S2 abd: soft, mild distention, discomfort to mid abdomen, no peritoneal signs, no hernias or masses JOHANNA: normal tone, no blood, no stool, no masses a/p 63yo with abdominal pain possible partial SBO CT scan reviewed - non contrast CT with dilated small bowel abdominal exam cheikh will repeat CT with PO contrast
[2018-11-09] MEDS ORDERED: Lactated Ringer's 1,000 ML IV SCH (10:00)
--- NOTE | 2018-11-09 10:32 | CT ---
Date of service: 11/09/2018 PROCEDURE: CT Abdomen and Pelvis with contrast HISTORY: abdominal pain COMPARISON: 04/19/2017. CT abdomen and pelvis. Summary of findings on the comparison examination: High-grade partial distal small bowel obstruction suggested. TECHNIQUE: Intravenous contrast dose: 95 cc Omnipaque 300. Radiation dose: Total exam DLP = 695.32 mGy-cm. This CT exam was performed using one or more of the following dose reduction techniques: Automated exposure control, adjustment of the mA and/or kV according to patient size, and/or use of iterative reconstruction technique. FINDINGS: LOWER THORAX: Unremarkable. LIVER: Unremarkable. No gross lesion or ductal dilatation. GALLBLADDER AND BILE DUCTS: Unremarkable. PANCREAS: Unremarkable. No gross lesion or ductal dilatation. SPLEEN: Unremarkable. ADRENALS: Stable enlargement left adrenal gland. KIDNEYS AND URETERS: Unremarkable. No hydronephrosis. No solid mass. VASCULATURE: Unremarkable. No aortic aneurysm. No atherosclerotic calcification or mural plaque present. BOWEL: Distal small bowel obstruction without visible mechanical lesion. The distribution is similar to that seen previously. The severity of the obstruction is less. Gastric distension seen on the prior study is again identified. APPENDIX: Normal appendix. PERITONEUM: Unremarkable. No free fluid. No free air. LYMPH NODES: Unremarkable. No enlarged lymph nodes. BLADDER: Unremarkable. REPRODUCTIVE: Unremarkable. BONES: No acute fracture. OTHER FINDINGS: None. IMPRESSION: Distal small bowel obstruction less severe than that seen previously. The degree of obstruction is less than that seen previously. Distended stomach again identified. Additional benign and/or incidental findings described above. Concordant results (preliminary interpretation) provided by [employer]. Procedure Completed: 07:50. Preliminary Report: Interpreted and electronically signed: 09:33. Final Interpretation: 10:29. November 09, 2018
[2018-11-09] MEDS ORDERED: Iohexol 240 (50 ml) PO ONE ×2 (10:53→11:00)
[2018-11-09] MEDS ORDERED: Iohexol 240 (50 ml) ONE (11:34)
--- NOTE | 2018-11-09 15:17 | CT ---
Date of service: 11/09/2018 PROCEDURE: CT abdomen pelvis HISTORY: for SBO COMPARISON: Comparison made with CT scan of the abdomen pelvis 11/09/2018 at 7:47 a.m.. TECHNIQUE: Contiguous axial images of the abdomen and pelvis performed following [facility] oral contrast material. Additional 2D sagittal and coronal reformats generated. Radiation dose: Total exam DLP = 740.73 mGy-cm. This CT exam was performed using one or more of the following dose reduction techniques: Automated exposure control, adjustment of the mA and/or kV according to patient size, and/or use of iterative reconstruction technique. FINDINGS: LOWER THORAX: Heart size is within range of normal. No significant pericardial effusion. There is a small hiatal hernia. Head bibasilar atelectasis and/or some mild scarring changes seen in both posterior sulci. No evidence of effusion or basilar pneumothorax. LIVER: Unremarkable. No gross lesion or ductal dilatation. GALLBLADDER AND BILE DUCTS: Gallbladder physiologically distended. No evidence of intraluminal gallbladder calculi. PANCREAS: Unremarkable. No mass. No ductal dilatation. SPLEEN: Unremarkable. No splenomegaly. ADRENALS: No adrenal lesions.. KIDNEYS AND URETERS: Kidneys demonstrate symmetric size. Some residual contrast material within the collecting systems felt to be present.. No evidence of hydronephrosis. BLADDER: Urinary bladder is distended with intravenous contrast material. REPRODUCTIVE: The prostate gland measures approximately 4 cm in transverse dimension. There also appear to be faint prostatic calcifications APPENDIX: What is felt to represent normal appendix best seen on axial series 3 image number [id number]. BOWEL: Evaluation of the bowel is slightly limited due to incomplete opacification. The stomach is markedly distended with oral contrast material some food debris and air.. Previously noted multiple distended proximal loops of small bowel again seen. There is partial opacification of several of these proximal loops of small bowel however some of the distal distended loops are fluid-filled. In addition, there are collapse of the loops of distal small bowel (ileum seen in the right lower quadrant of the abdomen.. There may be a transition point in the right lower anterior abdomen though this is less well seen and suspected transition point on prior CT scan.. Findings could represent a partial and or intermittent small bowel obstruction. PERITONEUM: Unremarkable. No fluid collection. No free air. Small fat containing umbilical hernia. LYMPH NODES: Unremarkable. No enlarged lymph nodes. VASCULATURE: Unremarkable. No aortic aneurysm. No aortic atherosclerotic calcification or mural plaque present. BONES: No fracture or destructive lesion. OTHER FINDINGS: None. IMPRESSION: Findings consistent with partial and or intermittent small bowel obstruction with a transition point suspected in the right lower anterior abdomen as above.
--- NOTE | 2018-11-09 16:19 | CP.PCM.HP ---
Past Patient History - Past Social History Smoking Status: Never Smoked - CARDIAC Hx Cardiac Disorders: No - PULMONARY Hx Respiratory Disorders: No - NEUROLOGICAL Hx Neurological Disorder: No - HEENT Hx HEENT Problems: No - RENAL Hx Chronic Kidney Disease: No - ENDOCRINE/METABOLIC Hx Hypothyroidism: Yes - HEMATOLOGICAL/ONCOLOGICAL Hx Blood Disorders: Yes - INTEGUMENTARY Hx Dermatological Problems: No - MUSCULOSKELETAL/RHEUMATOLOGICAL Hx Musculoskeletal Disorders: No Hx Falls: No - GASTROINTESTINAL Hx Gastrointestinal Disorders: No - GENITOURINARY/GYNECOLOGICAL Hx Genitourinary Disorders: No - PSYCHIATRIC Hx Depression: Yes - SURGICAL HISTORY Hx Surgeries: Yes Hx Musculoskeletal Surgery: Yes (Maxilla) - ANESTHESIA Hx Anesthesia: Yes Meds Allergies/Adverse Reactions: Allergies Allergy/AdvReac Type Severity Reaction Status Date / Time No Known Allergies Allergy Verified 11/09/18 05:45 Results - Vital Signs Recent Vital Signs: Last Vital Signs Temp 98.4 F 11/09/18 14:58 Pulse 51 L 11/09/18 14:58 Resp 18 11/09/18 14:58 BP 117/72 11/09/18 14:58 Pulse Ox 96 11/09/18 14:46 - Labs Result Diagrams: 11/09/18 06:10 11/09/18 06:10 Labs: Laboratory Results - last 24 hr 11/09/18 11/09/18 06:10 06:10 WBC 9.5 RBC 6.06 H Hgb 17.2 D Hct 52.3 H MCV 86.3 MCH 28.4 MCHC 32.9 L RDW 12.5 Plt Count 216 MPV 9.0 Neut % (Auto) 73.0 Lymph % (Auto) 18.6 L [place] % (Auto) 6.9 Eos % (Auto) 1.1 Baso % (Auto) 0.4 Neut # (Auto) 7.0 Lymph # (Auto) 1.8 [place] # (Auto) 0.7 Eos # (Auto) 0.1 Baso # (Auto) 0.0 Sodium 137 Potassium 4.5 Chloride 97 L Carbon Dioxide 32 H Anion Gap 13 BUN 21 H Creatinine 1.4 Est GFR ( Amer) > 60 Est GFR (Non-Af Amer) 51 Random Glucose 106 Calcium 10.3 H Total Bilirubin 0.4 AST 36 ALT 48 Alkaline Phosphatase 75 Total Protein 7.7 Albumin 4.9 Globulin 2.8 Albumin/Globulin Ratio 1.7 Lipase 71
[2018-11-09] MEDS: Dextrose 5%/0.9% NS 1,000 ML IV SCH (17:51)
--- NOTE | 2018-11-09 22:26 | CARD ---
APPROVED REPORT Date of service: 11/09/2018 EKG Measurement Heart [id number] <Conclusion> Sinus bradycardia with sinus arrhythmia with 1st degree AV block Nonspecific intraventricular conduction delay Borderline ECG
[2018-11-10] MEDS: Dextrose 5%/0.9% NS 1,000 ML IV SCH ×3 (03:32→15:55)
[2018-11-10] MEDS: Levothyroxine 50 MCG TAB PO SCH (05:34)
--- NOTE | 2018-11-10 06:23 | CP.PCM.PN ---
<Gigi Dean - Last Filed: 11/10/18 06:19> Subjective - Date & Time of Evaluation Date of Evaluation: 11/10/18 Time of Evaluation: 06:19 - Subjective Subjective: General Surgery Progress Note for Dr. Kim This 63F was seen and examined this AM at bedside no acute events overnight. He reports he had a large voluminous BM which was mostly liquid with sold components. He reports that his abdominal candie is improved but still present. He denies any fevers chill chest pain or SOB. Objective - Vital Signs/Intake and Output Vital Signs (last 24 hours): Temp Pulse Resp BP Pulse Ox 98 F 51 L 18 106/60 95 11/10/18 00:11 11/10/18 00:11 11/10/18 00:11 11/10/18 00:11 11/10/18 00:11 Intake and Output: 11/09/18 11/10/18 18:59 06:59 Intake Total 950 Balance 950 - Medications Medications: Current Medications Acetaminophen (Tylenol 325mg Tab) 650 mg PO Q4 PRN PRN Reason: Pain, Mild (1-3) Enoxaparin Sodium (Lovenox) 40 mg SC DAILY [facility]; Protocol Fluoxetine HCl (Prozac) 40 mg PO DAILY [facility] Home Med (Bupropion Xl [Wellbutrin Xl]) 150 mg PO DAILY [facility] Home Med (Bupropion Xl [Wellbutrin Xl]) 300 mg PO DAILY [facility] Dextrose/Sodium Chloride (Dextrose 5%/0.9% Ns 1000 Ml) 1,000 mls @ 100 mls/hr IV .Q10H [facility] Stop: 11/10/18 17:00 Last Admin: 11/10/18 05:34 Dose: 100 mls/hr Ketorolac Tromethamine (Toradol) 15 mg IVP Q6 PRN PRN Reason: Pain, moderate (4-7) Last Admin: 11/09/18 19:20 Dose: 15 mg Levothyroxine Sodium (Synthroid) 50 mcg PO DAILY@0630 [facility] Last Admin: 11/10/18 05:34 Dose: 50 mcg Morphine Sulfate (Morphine) 2 mg IVP Q4 PRN PRN Reason: Pain, severe (8-10) Ondansetron HCl (Zofran Inj) 4 mg IVP Q6 PRN PRN Reason: Nausea/Vomiting Pantoprazole Sodium (Protonix Inj) 40 mg IVP DAILY [facility] Trazodone HCl (Desyrel) 25 mg PO HS [facility] Last Admin: 11/09/18 21:24 Dose: 25 mg - Labs Labs: 11/09/18 06:10 11/09/18 06:10 - Constitutional Appears: Non-toxic, No Acute Distress - Head Exam Head Exam: ATRAUMATIC, NORMOCEPHALIC - Eye Exam Eye Exam: EOMI, Normal appearance - ENT Exam ENT Exam: Mucous Membranes Moist - Respiratory Exam Respiratory Exam: NORMAL BREATHING PATTERN - Cardiovascular Exam Cardiovascular Exam: +S1, +S2 - GI/Abdominal Exam GI & Abdominal Exam: Soft. absent: Distended, Firm, Guarding, Rigid, Tenderness - Neurological Exam Neurological Exam: Alert, Awake - Psychiatric Exam Psychiatric exam: Normal Affect, Normal Mood - Skin Skin Exam: Dry, Intact Assessment and Plan - Assessment and Plan (Free Text) Assessment: 63 M who presents for SBO which is resolving Plan: -NPO -F/U KUB -Serial abd exams -Monitor for bowel function Further recs per Dr. Julio Dean <Lebron Kim - Last Filed: 11/10/18 19:48> Subjective - Date & Time of Evaluation Time of Evaluation: 19:10 - Subjective Subjective: Patient was seen and examined at the bedside. Agree with resident's note above. Denies any nausea or vomiting, passing flatus and having multiple loose bowel movements. Tolerating clear liquid diet. KUB results noted. Objective - Vital Signs/Intake and Output Vital Signs (last 24 hours): Temp Pulse Resp BP Pulse Ox 99.1 F 55 L 18 119/72 96 11/10/18 16:28 11/10/18 16:28 11/10/18 16:28 11/10/18 16:28 11/10/18 16:28 Intake and Output: 11/10/18 11/11/18 18:59 06:59 Output Total 3 Balance -3 - Medications Medications: Current Medications Acetaminophen (Tylenol 325mg Tab) 650 mg PO Q4 PRN PRN Reason: Pain, Mild (1-3) Enoxaparin Sodium (Lovenox) 40 mg SC DAILY [facility]; Protocol Last Admin: 11/10/18 08:32 Dose: 40 mg Fluoxetine HCl (Prozac) 40 mg PO DAILY [facility] Last Admin: 11/10/18 08:33 Dose: 40 mg Home Med (Bupropion Xl [Wellbutrin Xl]) 150 mg PO DAILY [facility] Home Med (Bupropion Xl [Wellbutrin Xl]) 300 mg PO DAILY [facility] Ketorolac Tromethamine (Toradol) 15 mg IVP Q6 PRN PRN Reason: Pain, moderate (4-7) Last Admin: 11/09/18 19:20 Dose: 15 mg Levothyroxine Sodium (Synthroid) 50 mcg PO DAILY@0630 [facility] Last Admin: 11/10/18 05:34 Dose: 50 mcg Morphine Sulfate (Morphine) 2 mg IVP Q4 PRN PRN Reason: Pain, severe (8-10) Ondansetron HCl (Zofran Inj) 4 mg IVP Q6 PRN PRN Reason: Nausea/Vomiting Pantoprazole Sodium (Protonix Inj) 40 mg IVP DAILY [facility] Last Admin: 11/10/18 08:32 Dose: 40 mg Trazodone HCl (Desyrel) 25 mg PO [facility] Last Admin: 11/09/18 21:24 Dose: 25 mg - Labs Labs: 11/10/18 07:00 11/10/18 07:00 PT 11.0 Seconds (9.8-13.1) 11/10/18 07:00 INR 1.0 11/10/18 07:00 - GI/Abdominal Exam Additional comments: soft, NT, ND, BS+, no rebound, no guarding Assessment and Plan - Assessment and Plan (Free Text) Assessment: 63 y.o. male with no evidence of bowel obstruction and resolving abdominal pain Plan: - Clear liquid diet - IV fluids - Monitor bowel function - No general surgery intervention at present time - repeat labs in am - Will follow
[2018-11-10 08:17] LABS: BASO % 0.6 % (0.0-2.0); EOS # 0.1 K/uL (0.0-0.7); EOS % 1.9 % (0.0-4.0); HEMOGLOBIN 14.8 g/dL (12.0-18.0); LYMPH # 1.2 K/uL (1.0-4.3); LYMPH % 20.5 % (20.0-40.0); MEAN CELL VOLUME 86.1 fl (80.0-94.0); MEAN CORPUSCULAR HEMOGLOBIN 28.5 pg (27.0-31.0); MEAN CORPUSCULAR HGB CONC 33.1 g/dL (33.0-37.0); MEAN PLATELET VOLUME 8.4 fl (7.2-11.7); MONO # 0.7 K/uL (0.0-0.8); MONO % 11.3 % (0.0-10.0); NEUT # 3.8 K/uL (1.8-7.0); NEUT % 65.7 % (50.0-75.0); NRBC % 0.1 % (0.0-0.0); RBC 5.18 Mil/uL (4.40-5.90); RED CELL DISTRIBUTION WIDTH 12.6 % (11.5-14.5); WHITE BLOOD COUNT 5.8 K/uL (4.8-10.8)
[2018-11-10] MEDS: Enoxaparin 40 mg Syringe SC SCH (08:32)
[2018-11-10 08:53] LABS: ALB/GLOB RATIO 1.6 (1.0-2.1); ALBUMIN 3.7 g/dL (3.5-5.0); ALT/SGPT 36 U/L (21-72); AST/SGOT 24 U/L (17-59); BLOOD UREA NITROGEN 14 mg/dl (9-20); CALCIUM 8.8 mg/dL (8.4-10.2); GFR NON-AFRICAN AMERICAN 56
--- NOTE | 2018-11-10 15:28 | RAD ---
Date of service: 11/10/2018 HISTORY: sbo COMPARISON: Correlation made with CT scan abdomen pelvis 11/09/2017 TECHNIQUE: 1 view obtained. FINDINGS: BOWEL: Oral contrast material from recent CT scan 11/09/2018 opacifies the colon. Findings exclude complete small-bowel obstruction. BONES: Normal. OTHER FINDINGS: None. IMPRESSION: Oral contrast material from recent CT scan 11/09/2018 opacifies the colon. Findings exclude complete small-bowel obstruction. .
[2018-11-10 23:52] VITALS: BP 96/60; PULSE 52; RESP 20; TEMP 98; O2SAT 97
--- NOTE | 2018-11-11 04:24 | CP.PCM.PN ---
Subjective - Date & Time of Evaluation Date of Evaluation: 11/10/18 Objective - Vital Signs/Intake and Output Vital Signs (last 24 hours): Temp Pulse Resp BP Pulse Ox 98 F 52 L 20 96/60 L 97 11/10/18 23:51 11/10/18 23:51 11/10/18 23:51 11/10/18 23:51 11/10/18 23:51 Intake and Output: 11/10/18 11/11/18 18:59 06:59 Output Total 3 Balance -3 - Medications Medications: Current Medications Acetaminophen (Tylenol 325mg Tab) 650 mg PO Q4 PRN PRN Reason: Pain, Mild (1-3) Enoxaparin Sodium (Lovenox) 40 mg SC DAILY [facility]; Protocol Last Admin: 11/10/18 08:32 Dose: 40 mg Fluoxetine HCl (Prozac) 40 mg PO DAILY [facility] Last Admin: 11/10/18 08:33 Dose: 40 mg Home Med (Bupropion Xl [Wellbutrin Xl]) 150 mg PO DAILY [facility] Home Med (Bupropion Xl [Wellbutrin Xl]) 300 mg PO DAILY [facility] Ketorolac Tromethamine (Toradol) 15 mg IVP Q6 PRN PRN Reason: Pain, moderate (4-7) Last Admin: 11/09/18 19:20 Dose: 15 mg Levothyroxine Sodium (Synthroid) 50 mcg PO DAILY@0630 [facility] Last Admin: 11/10/18 05:34 Dose: 50 mcg Morphine Sulfate (Morphine) 2 mg IVP Q4 PRN PRN Reason: Pain, severe (8-10) Ondansetron HCl (Zofran Inj) 4 mg IVP Q6 PRN PRN Reason: Nausea/Vomiting Pantoprazole Sodium (Protonix Inj) 40 mg IVP DAILY [facility] Last Admin: 11/10/18 08:32 Dose: 40 mg Trazodone HCl (Desyrel) 25 mg PO HS [facility] Last Admin: 11/10/18 21:01 Dose: 25 mg - Labs Labs: 11/10/18 07:00 11/10/18 07:00 PT 11.0 Seconds (9.8-13.1) 11/10/18 07:00 INR 1.0 11/10/18 07:00
[2018-11-11] MEDS: Levothyroxine 50 MCG TAB PO SCH (06:43)
--- NOTE | 2018-11-11 07:35 | CP.PCM.PN ---
<Dave Fang Shanique - Last Filed: 11/11/18 07:33> Subjective - Date & Time of Evaluation Date of Evaluation: 11/11/18 Time of Evaluation: 07:33 - Subjective Subjective: General Surgery: Dr Kim Pt S&E. CHAN. Resting comfortably. Denies any pain, nausea, discomfort. Only complaint is no sleep all night due to noisy roommate. Tolerating CLD. Passing flatus with multiple liquid BMs. OOB and ambulating Objective - Vital Signs/Intake and Output Vital Signs (last 24 hours): Temp Pulse Resp BP Pulse Ox 98 F 52 L 20 96/60 L 97 11/10/18 23:51 11/10/18 23:51 11/10/18 23:51 11/10/18 23:51 11/10/18 23:51 - Medications Medications: Current Medications Acetaminophen (Tylenol 325mg Tab) 650 mg PO Q4 PRN PRN Reason: Pain, Mild (1-3) Enoxaparin Sodium (Lovenox) 40 mg SC DAILY [facility]; Protocol Last Admin: 11/10/18 08:32 Dose: 40 mg Fluoxetine HCl (Prozac) 40 mg PO DAILY [facility] Last Admin: 11/10/18 08:33 Dose: 40 mg Home Med (Bupropion Xl [Wellbutrin Xl]) 150 mg PO DAILY [facility] Home Med (Bupropion Xl [Wellbutrin Xl]) 300 mg PO DAILY [facility] Ketorolac Tromethamine (Toradol) 15 mg IVP Q6 PRN PRN Reason: Pain, moderate (4-7) Last Admin: 11/09/18 19:20 Dose: 15 mg Levothyroxine Sodium (Synthroid) 50 mcg PO DAILY@0630 [facility] Last Admin: 11/11/18 06:43 Dose: 50 mcg Morphine Sulfate (Morphine) 2 mg IVP Q4 PRN PRN Reason: Pain, severe (8-10) Ondansetron HCl (Zofran Inj) 4 mg IVP Q6 PRN PRN Reason: Nausea/Vomiting Pantoprazole Sodium (Protonix Inj) 40 mg IVP DAILY [facility] Last Admin: 11/10/18 08:32 Dose: 40 mg Trazodone HCl (Desyrel) 25 mg PO HS [facility] Last Admin: 11/10/18 21:01 Dose: 25 mg - Labs Labs: 11/10/18 07:00 11/10/18 07:00 PT 11.0 Seconds (9.8-13.1) 11/10/18 07:00 INR 1.0 11/10/18 07:00 - Constitutional Appears: Non-toxic, No Acute Distress - Head Exam Head Exam: NORMAL INSPECTION - Respiratory Exam Respiratory Exam: absent: Accessory Muscle Use, Respiratory Distress - Cardiovascular Exam Cardiovascular Exam: REGULAR RHYTHM - GI/Abdominal Exam GI & Abdominal Exam: Soft. absent: Distended, Tenderness - Neurological Exam Neurological Exam: Alert, Awake, Oriented x3 - Psychiatric Exam Psychiatric exam: Normal Affect, Normal Mood Assessment and Plan - Assessment and Plan (Free Text) Assessment: 63M with SBO,; resolved Plan: adv to regular diet no surgical intervention planned OK for d/c from surgical stand point pt instructed to return to ED if return or worsening of symptoms will d/w Dr Julio Fang, PGY4 <Lebron Kim - Last Filed: 11/11/18 11:51> Subjective - Date & Time of Evaluation Time of Evaluation: 11:15 - Subjective Subjective: Patient was seen and examined at the bedside. Agree with resident's note above. Objective - Vital Signs/Intake and Output Vital Signs (last 24 hours): Temp Pulse Resp BP Pulse Ox 98 F 52 L 20 96/60 L 97 11/10/18 23:51 11/10/18 23:51 11/10/18 23:51 11/10/18 23:51 11/10/18 23:51 - Medications Medications: Current Medications Acetaminophen (Tylenol 325mg Tab) 650 mg PO Q4 PRN PRN Reason: Pain, Mild (1-3) Enoxaparin Sodium (Lovenox) 40 mg SC DAILY [facility]; Protocol Last Admin: 11/11/18 08:44 Dose: 40 mg Fluoxetine HCl (Prozac) 40 mg PO DAILY [facility] Last Admin: 11/11/18 08:45 Dose: 40 mg Home Med (Bupropion Xl [Wellbutrin Xl]) 150 mg PO DAILY [facility] Home Med (Bupropion Xl [Wellbutrin Xl]) 300 mg PO DAILY [facility] Ketorolac Tromethamine (Toradol) 15 mg IVP Q6 PRN PRN Reason: Pain, moderate (4-7) Last Admin: 11/09/18 19:20 Dose: 15 mg Levothyroxine Sodium (Synthroid) 50 mcg PO DAILY@0630 [facility] Last Admin: 11/11/18 06:43 Dose: 50 mcg Morphine Sulfate (Morphine) 2 mg IVP Q4 PRN PRN Reason: Pain, severe (8-10) Ondansetron HCl (Zofran Inj) 4 mg IVP Q6 PRN PRN Reason: Nausea/Vomiting Pantoprazole Sodium (Protonix Inj) 40 mg IVP DAILY [facility] Last Admin: 11/11/18 08:45 Dose: 40 mg Trazodone HCl (Desyrel) 25 mg PO HS [facility] Last Admin: 11/10/18 21:01 Dose: 25 mg - Labs Labs: 11/11/18 06:30 11/11/18 06:30 PT 11.0 Seconds (9.8-13.1) 11/10/18 07:00 INR 1.0 11/10/18 07:00 - GI/Abdominal Exam Additional comments: soft, NT, ND, BS+, no rebound, no guarding Assessment and Plan - Assessment and Plan (Free Text) Plan: - Regular diet - Clear for discharge home from general surgery stand point
[2018-11-11] MEDS: Enoxaparin 40 mg Syringe SC SCH (08:44)
[2018-11-11 08:53] LABS: BASO % 0.6 % (0.0-2.0); EOS # 0.1 K/uL (0.0-0.7); EOS % 1.6 % (0.0-4.0); LYMPH # 1.3 K/uL (1.0-4.3); LYMPH % 25.1 % (20.0-40.0); MEAN CELL VOLUME 86.7 fl (80.0-94.0); MEAN CORPUSCULAR HEMOGLOBIN 28.6 pg (27.0-31.0); MEAN PLATELET VOLUME 8.7 fl (7.2-11.7); MONO # 0.9 K/uL (0.0-0.8); NEUT # 2.8 K/uL (1.8-7.0); NEUT % 55.7 % (50.0-75.0); NRBC % 0.1 % (0.0-0.0); RBC 5.23 Mil/uL (4.40-5.90); RED CELL DISTRIBUTION WIDTH 12.5 % (11.5-14.5); WHITE BLOOD COUNT 5.1 K/uL (4.8-10.8)
[2018-11-11 09:05] LABS: BLOOD UREA NITROGEN 10 mg/dl (9-20); CALCIUM 9.2 mg/dL (8.4-10.2); GFR NON-AFRICAN AMERICAN 56
--- NOTE | 2018-11-12 08:24 | CP.PCM.DIS ---
Provider - Provider Date of Admission: 11/09/18 10:10 Attending physician: Chanell Fraga MD Consults: 11/09/18 09:54 General Surgery Consult Stat Comment: Consulting Provider: Lebron Kim Consulting Physician: Lebron Kim Reason for Consult: SBO Time Spent in preparation of Discharge (in minutes): 25 Diagnosis - Discharge Diagnosis (1) Abdominal pain Status: Acute (2) Partial small bowel obstruction Status: Acute Comment: Questionable etiology. Will need outpatient colonoscopy Hospital Course - Lab Results Lab Results: Most Recent Lab Values WBC 5.1 K/uL (4.8-10.8) 11/11/18 06:30 RBC 5.23 Mil/uL (4.40-5.90) 11/11/18 06:30 Hgb 15.0 g/dL (12.0-18.0) 11/11/18 06:30 Hct 45.3 % (35.0-51.0) 11/11/18 06:30 MCV 86.7 fl (80.0-94.0) 11/11/18 06:30 MCH 28.6 pg (27.0-31.0) 11/11/18 06:30 MCHC 33.0 g/dL (33.0-37.0) 11/11/18 06:30 RDW 12.5 % (11.5-14.5) 11/11/18 06:30 Plt Count 174 K/uL (130-400) 11/11/18 06:30 MPV 8.7 fl (7.2-11.7) 11/11/18 06:30 Neut % (Auto) 55.7 % (50.0-75.0) 11/11/18 06:30 Lymph % (Auto) 25.1 % (20.0-40.0) 11/11/18 06:30 [place] % (Auto) 17.0 % (0.0-10.0) H 11/11/18 06:30 Eos % (Auto) 1.6 % (0.0-4.0) 11/11/18 06:30 Baso % (Auto) 0.6 % (0.0-2.0) 11/11/18 06:30 Neut # (Auto) 2.8 K/uL (1.8-7.0) 11/11/18 06:30 Lymph # (Auto) 1.3 K/uL (1.0-4.3) 11/11/18 06:30 [place] # (Auto) 0.9 K/uL (0.0-0.8) H 11/11/18 06:30 Eos # (Auto) 0.1 K/uL (0.0-0.7) 11/11/18 06:30 Baso # (Auto) 0.0 K/uL (0.0-0.2) 11/11/18 06:30 PT 11.0 Seconds (9.8-13.1) 11/10/18 07:00 INR 1.0 11/10/18 07:00 Sodium 139 mmol/l (132-148) 11/11/18 06:30 Potassium 4.2 MMOL/L (3.6-5.0) 11/11/18 06:30 Chloride 101 mmol/L (98-107) 11/11/18 06:30 Carbon Dioxide 29 mmol/L (22-30) 11/11/18 06:30 Anion Gap 13 (10-20) 11/11/18 06:30 BUN 10 mg/dl (9-20) 11/11/18 06:30 Creatinine 1.3 mg/dl (0.8-1.5) 11/11/18 06:30 Est GFR ( Amer) > 60 11/11/18 06:30 Est GFR (Non-Af Amer) 56 11/11/18 06:30 Random Glucose 99 mg/dL (75-110) 11/11/18 06:30 Calcium 9.2 mg/dL (8.4-10.2) 11/11/18 06:30 Phosphorus 2.8 mg/dl (2.5-4.5) 11/11/18 06:30 Magnesium 2.0 MG/DL (1.6-2.3) 11/11/18 06:30 Total Bilirubin 0.8 mg/dl (0.2-1.3) 11/10/18 07:00 AST 24 U/L (17-59) 11/10/18 07:00 ALT 36 U/L (21-72) 11/10/18 07:00 Alkaline Phosphatase 63 U/L (38-126) 11/10/18 07:00 Total Protein 5.9 G/DL (6.3-8.2) L 11/10/18 07:00 Albumin 3.7 g/dL (3.5-5.0) 11/10/18 07:00 Globulin 2.2 gm/dL (2.2-3.9) 11/10/18 07:00 Albumin/Globulin Ratio 1.6 (1.0-2.1) 11/10/18 07:00 Lipase 71 U/L (23-300) 11/09/18 06:10 TSH 3rd Generation 1.93 mIU/ML (0.46-4.68) 11/10/18 07:00 Discharge Exam - Head Exam Head Exam: NORMAL INSPECTION Discharge Plan - Follow Up Plan Condition: STABLE Disposition: HOME/ ROUTINE Instructions: Small Bowel Obstruction (DC) Referrals: Chanell Fraga MD [Staff Provider] -
--- NOTE | 2018-11-21 12:19 | PQF ---
PROVIDER RESPONSE TEXT: HIV, other - unable to determine REVIEWER QUERY TEXT: HIV Clarification and Associated Conditions HIV (Human immunodeficiency virus) is documented in the medical record. Please specify the type Such as: -- Symptomatic -- Asymptomatic -- Other, please specify H and P remains blank at this time Surgical consult: includes: 63 M with PMH that includes HIV+ and previous SBO who presents for abdomi nal pain and constipation. 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
== END 2018-11-11 13:25 | disposition home or self-care (01) | DRG 389 ==
LOC: H.ER 05:26 → H.ERHOLD 10:10 → H.MEDSURG1 15:30
PROVIDERS: ADMIT Internal Medicine; ATTEND Internal Medicine
DX: K56.600 Partial intestinal obstruction, unspecified as to cause (principal); B20 Human immunodeficiency virus [HIV] disease; E03.9 Hypothyroidism, unspecified; Z79.890 Hormone replacement therapy; F32.9 Major depressive disorder, single episode, unspecified; K59.00 Constipation, unspecified